=== PATIENT | male | born 1980 ===

== ENCOUNTER 2017-08-05 18:50 | Emergency (ER) | payer OTHER ==
[2017-08-05 18:59] VITALS: BMI 47.0
[2017-08-05 19:03] VITALS: O2SAT 100
[2017-08-05] MEDS ORDERED: Metoprolol 1 mg/ml Inj IVP STA (19:08)
--- NOTE | 2017-08-05 19:11 | C.PDOC ---
History Of Present Illness 36yo male, with past medical history of hypertension, high cholesterol, tachycardia, and has had multiple past admissions for chest pain and palpitations, presents to ED today with complaints of palpitations. He states he felt his heart racing all day and was wore at work so he called 911 when he got home. Patient also reports a non-productive cough but denies any associated fever. He also reports mild chest pain, denies any shortness of breath. He has no other complaints. Time Seen by Provider: 08/05/17 18:56 Chief Complaint (Nursing): Chest Pain History Per: Patient History/Exam Limitations: no limitations Onset/Duration Of Symptoms: Hrs Current Symptoms Are (Timing): Still Present Past Medical History Reviewed: Historical Data, Nursing Documentation, Vital Signs Vital Signs: Last Vital Signs Temp 99.1 F 08/05/17 22:43 Pulse 108 H 08/05/17 22:43 Resp 17 08/05/17 22:43 BP 119/62 08/05/17 22:43 Pulse Ox 100 08/05/17 22:43 - Medical History PMH: Anxiety, Cardia Arrhythmia, HTN, Hypercholesterolemia, Kidney Stones Denies: Chronic Kidney Disease Surgical History: No Surg Hx Family History: States: Unknown Family Hx, Diabetes - Social History Hx Tobacco Use: No Hx Alcohol Use: No Hx Substance Use: No - Immunization History Hx Tetanus Toxoid Vaccination: Yes Hx Influenza Vaccination: No Hx Pneumococcal Vaccination: No Review Of Systems Except As Marked, All Systems Reviewed And Found Negative. Constitutional: Negative for: Fever Cardiovascular: Positive for: Chest Pain, Palpitations Respiratory: Positive for: Cough. Negative for: Shortness of Breath, SOB with Excertion, Wheezing Gastrointestinal: Negative for: Nausea, Vomiting, Abdominal Pain, Diarrhea, Constipation Genitourinary: Negative for: Dysuria Psych: Positive for: Anxiety Physical Exam - Physical Exam Appears: Non-toxic, Other (anxious appearing, patient wont open his eyes and states "I'm trying to calm down") Skin: Normal Color Head: Atraumatic, Normacephalic Neck: Supple Chest: Symmetrical Cardiovascular: Other (tachycardic) Respiratory: Normal Breath Sounds, No Wheezing Gastrointestinal/Abdominal: Soft, No Tenderness Back: Normal Inspection, No CVA Tenderness Extremity: Normal ROM (moves all extremities) Neurological/Psych: Oriented x3, Normal Motor (moves all extremties) Gait: Steady ED Course And Treatment - Laboratory Results Result Diagrams: 08/05/17 19:10 08/05/17 19:10 O2 Sat by Pulse Oximetry: 100 (RA) Pulse Ox Interpretation: Normal Medical Decision Making Medical Decision Making: Patient has had multiple cardiac evaluations. Patient had negative stress test in 2016. He has had negative CTA in past. Heart score of 0. He was discontinued from metoprolol by PMD. Episodes thought secondary to anxiety. Ativan and lopressor ordered (Aspirin given in field) Called patient's PMD for further information with no call back. EKG shows sinus tachycardia at 143bpm with no ST changes. TSH and free t4 WNL. Trop negative. CT chest Pulmonary arteries: No pulmonary embolism. Aorta: No thoracic aortic aneurysm. Lungs: No mass. No consolidation. Trace bibasilar atelectasis. Pleural spaces: No significant effusion. No pneumothorax. Heart: No cardiomegaly. No significant pericardial effusion. Bones: No acute fracture. Lymph nodes: No pathologically enlarged lymph nodes. IMPRESSION: No pulmonary embolism. Trace bibasilar atelectasis. On reevaluation, heart rate is improved and symptoms are resolved. Patient instructed on importance of following up with PMD Disposition - Disposition Disposition: HOME/ ROUTINE Disposition Time: 22:29 Condition: GOOD Additional Instructions: Follow-up with your PMD within 2 days. Return to ED if condition worsens. Forms: [facility] (Nauruan) - Clinical Impression Clinical Impression: Tachycardia, Anxiety - Scribe Statement The provider has reviewed the documentation as recorded by the Mena Rossi Provider Attestation: All medical record entries made by the Mena were at my direction and personally dictated by me. I have reviewed the chart and agree that the record accurately reflects my personal performance of the history, physical exam, medical decision making, and the department course for this patient. I have also personally directed, reviewed, and agree with the discharge instructions and disposition.
[2017-08-05 19:14] LABS: MEAN PLATELET VOLUME 8.1 fL (7.2-11.7)
[2017-08-05 19:18] LABS: BASO % 0.2 % (0.0-2.0); EOS % 0.2 % (0.0-4.0); LYMPH # 0.7 K/uL (1.0-4.3); LYMPH % 5.8 % (20.0-40.0); MEAN CELL VOLUME 90.7 fL (80.0-94.0); MEAN CORPUSCULAR HEMOGLOBIN 31.6 pg (27.0-31.0); MEAN CORPUSCULAR HGB CONC 34.9 g/dL (33.0-37.0); MONO # 0.6 K/uL (0.0-0.8); MONO % 4.7 % (0.0-10.0); NRBC % 0.1 % (0.0-2.0); PLATELET COUNT 271 K/uL (130-400); RED CELL DISTRIBUTION WIDTH 13.7 % (11.5-14.5); WHITE BLOOD COUNT 12.8 K/uL (4.8-10.8)
[2017-08-05 19:26] LABS: ALB/GLOB RATIO 1.4 (1.0-2.1); ALKALINE PHOSPHATASE 60 U/L (38-126); ALT/SGPT 43 U/L (21-72); AST/SGOT 21 U/L (17-59); BLOOD UREA NITROGEN 12 mg/dL (9-20); CALCIUM 8.6 mg/dl (8.6-10.4); CARBON DIOXIDE 24 mmol/L (22-30); CHLORIDE 98 mmol/L (98-107); GFR AFRICAN-AMERICAN > 60; GLUCOSE,RANDOM 111 mg/dL (75-110); MAGNESIUM 1.5 mg/dL (1.6-2.3); PHOSPHOROUS 2.6 mg/dL (2.5-4.5); POTASSIUM 3.8 mmol/L (3.6-5.2); SODIUM 134 mmol/L (132-148); TOTAL PROTEIN 7.5 g/dL (6.3-8.3)
[2017-08-05] MEDS ORDERED: Metoprolol 1 mg/ml Inj IVP ONE (19:33)
[2017-08-05 19:42] VITALS: RESP 17
[2017-08-05 19:56] LABS: THYROID STIMULATING HORMONE 1.66 mIU/L (0.46-4.68)
[2017-08-05 20:01] LABS: EOSINOPHIL 1 % (0-4); NEUTROPHIL 88 % (50-75); TOTAL CELLS COUNTED 100
[2017-08-05] MEDS ORDERED: Iodixanol 320 MG/ML 100 ML BOTTLE IV ONE (20:42)
[2017-08-05 22:45] VITALS: BP 119/62; PULSE 108; TEMP 99.1
--- NOTE | 2017-08-06 07:23 | RAD ---
Chest x-ray single frontal view History: Chest pain. Comparison: 10/02/2016 Findings: Mild venous congestion. Right hilar prominence. Small nodular density at the right lung base may represent confluence of shadows with ribs and vessels. Heart size within normal limits. Impression: Mild venous congestion. Right hilar prominence. Small nodular density at the right lung base may represent confluence of shadows with ribs and vessels.
--- NOTE | 2017-08-06 08:24 | CT ---
CT chest pulmonary angiogram History: Chest wall pain. Tachycardia. Elevated D-dimer. Comparison: CT chest dated 09/23/2016 Technique: Axial computed tomographic angiographic images of the chest were performed with intravenous contrast utilizing pulmonary embolism protocol. Subsequently, sagittal coronal reformatted images as well as sagittal coronal MIPS reformatted images were obtained. This CT exam was performed using one or more of the following dose reduction techniques: Automated exposure control, adjustment of the mA and/or kV according to patient size, and/or use of iterative reconstruction technique. Findings: No evidence of acute pulmonary embolism. Somewhat limited evaluation of the distal segmental and subsegmental branches secondary to motion artifact. No significant aortic aneurysm. Trace bibasilar atelectasis. 2-3 millimeter subpleural nodule and or granuloma at the lateral aspect of the right lung on series 4, image 53. Additional 5 millimeter granuloma/nodule more inferiorly within the right lung on series 4, image 61. No significant pleural effusion. No significant cardiomegaly. Mild degenerative changes in the osseous structures. No significant lymphadenopathy. Heterogeneous attenuation of the spleen, nonspecific. Small hiatal hernia. Impression: No acute pulmonary embolism. Trace bibasilar atelectasis. 2-3 millimeter subpleural nodule and or granuloma at the lateral aspect of the right lung on series 4, image 53. Additional 5 millimeter granuloma/nodule more inferiorly within the right lung on series 4, image 61. These findings were preliminarily reported at 10:28 p.m. on 08/05/[address] Katia Mcclure from [facility].
== END 2017-08-05 22:43 | disposition home or self-care (01) ==
LOC: C.ER 18:50
DX: R00.0 Tachycardia, unspecified (principal); F41.9 Anxiety disorder, unspecified
CPT/HCPCS: 71010; 71275; 80053; 82550; 83735; 84100; 84439; 84443; 84484; 85025; 85378; 87804; 96374; 96375; 99285; J2060; Q9967

== ENCOUNTER 2017-08-17 17:24 | Emergency (ER) | payer OTHER ==
[2017-08-17 17:33] VITALS: BMI 49.9
[2017-08-17 17:37] VITALS: TEMP 98.2; O2SAT 100
--- NOTE | 2017-08-17 18:10 | C.PDOC ---
History Of Present Illness 36 y/o male presents to the ED complaining of abdominal pain x 1 hour. Patient was getting indigestion after eating chicken sandwich. He notes pain in the upper abdomen a little towards the right, has been burping and has gas too. Patient states that his heart is beating fast and he got worried and he took Xanax 0.25mg for anxiety with relief. He saw a pheresis specialist today and his echocardiogram was normal. He is scheduled for a holter monitor tomorrow. He has been on a beta-main and Lexapro in the past but has not been restarted on these meds pending the monitor. He was seen in this ED 2 weeks ago for the same complaiint. Work-up at that time including CTA Chest, labs and EKG were all unremarkable. Patient notes that he has left sided neck pain, SOB during episodes and nausea. Denies Chest pain, vomiting, diarrhea, constipation or any further medical complaints. Time Seen by Provider: 08/17/17 17:28 Chief Complaint (Nursing): Palpitations History Per: Patient History/Exam Limitations: no limitations Onset/Duration Of Symptoms: Hrs (x1 hour) Current Symptoms Are (Timing): Still Present Past Medical History Vital Signs: Last Vital Signs Temp 98.2 F 08/17/17 17:25 Pulse 107 H 08/17/17 17:25 Resp 20 08/17/17 17:25 BP 128/83 08/17/17 17:25 Pulse Ox 100 08/17/17 18:18 - Medical History PMH: Anxiety, Cardia Arrhythmia ( PER PATIENT, INAPPROPRIATE SINUS TACHYCARDIA ), Kidney Stones Denies: HTN (PT DENIES), Hypercholesterolemia (PT DENIES), Chronic Kidney Disease Family History: States: Unknown Family Hx, Diabetes - Social History Hx Tobacco Use: No (Never smoked) Hx Alcohol Use: No Hx Substance Use: No - Immunization History Hx Tetanus Toxoid Vaccination: Yes Hx Influenza Vaccination: No Hx Pneumococcal Vaccination: No Review Of Systems Except As Marked, All Systems Reviewed And Found Negative. (As per HPI, otherwise negative) Cardiovascular: Negative for: Chest Pain Respiratory: Positive for: Shortness of Breath (During episodes) Gastrointestinal: Positive for: Nausea, Abdominal Pain. Negative for: Vomiting , Diarrhea, Constipation Musculoskeletal: Positive for: Neck Pain (Left sided neck pain) Physical Exam - Physical Exam Appears: Well, No Acute Distress, Other (anxious) Skin: Normal Color, Warm, Dry Head: Atraumatic, Normacephalic Nose: Normal Throat: Normal Neck: Normal Cardiovascular: Rhythm Regular, No Murmur, Other (Elevated heart rate) Respiratory: Normal Breath Sounds, No Accessory Muscle Use Gastrointestinal/Abdominal: Normal Exam, Soft, No Tenderness, No Guarding, No Rebound Back: Normal Inspection Extremity: Normal ROM, No Deformity Neurological/Psych: Oriented x3 ED Course And Treatment ECG: Interpreted By Me ECG Rhythm: Sinus Tachycardia ECG Interpretation: No Acute Changes O2 Sat by Pulse Oximetry: 100 (RA) Pulse Ox Interpretation: Normal Medical Decision Making Medical Decision Making: Time: 18:15 patient is medically stable and will be discharged home. Scribe Attestation: Documented by Norma Mckeon acting as a scribe for Karla Wood MD. Scribe Attestation: All medical record entries made by the Scribe were at my direction and personally dictated by me. I have reviewed the chart and agree that the record accurately reflects my personal performance of the history, physical exam, medical decision making, and the department course for this patient. I have also personally directed, reviewed, and agree with the discharge instructions and disposition. Disposition Counseled Patient/Family Regarding: Studies Performed, Diagnosis, Need For Followup - Disposition Referrals: Anamaria Alaniz MD [Staff Provider] - Disposition: HOME/ ROUTINE Disposition Time: 18:20 Condition: STABLE Additional Instructions: Follow up tomorrow for your monitor as scheduled. Instructions: Atrial Tachycardia (ED) Forms: [email or web address] (Sami) - Clinical Impression Clinical Impression: Tachycardia, Anxiety
[2017-08-17 18:52] VITALS: BP 117/78; PULSE 92; RESP 16
--- NOTE | 2017-08-18 15:50 | CARD ---
APPROVED REPORT EKG Measurement Heart [id number] <Conclusion> Sinus tachycardia Otherwise normal ECG
== END 2017-08-17 18:50 | disposition home or self-care (01) ==
LOC: C.ER 17:24
DX: R00.0 Tachycardia, unspecified (principal); F41.9 Anxiety disorder, unspecified

== ENCOUNTER 2017-08-21 18:17 | Emergency (ER) | payer OTHER ==
[2017-08-21 18:17] VITALS: BMI 49.9
[2017-08-21 18:24] VITALS: O2SAT 99
--- NOTE | 2017-08-21 19:32 | C.PDOC ---
History Of Present Illness 36 y/o M c PMHx anxiety, sinus tachycardia p/w episode of palpitations, dyspnea , anxiety. Patient called EMS during this episode but felt better and wished to stay home, but EMS workers told him that they would feel more comfortable if he came to the hospital so he agreed. He currently denies any symptoms whatsoever and states it felt no different than his many anxiety attacks in the past. He also notes that he was in this ED just a few days ago for the same symptoms and had a negative CTA for PE. Time Seen by Provider: 08/21/17 19:22 Chief Complaint (Nursing): Abdominal Pain Past Medical History Vital Signs: Last Vital Signs Temp 97.6 F 08/21/17 18:20 Pulse 95 H 08/21/17 18:20 Resp 18 08/21/17 18:20 BP 151/84 H 08/21/17 18:20 Pulse Ox 99 08/21/17 19:38 - Medical History PMH: Anxiety, Cardia Arrhythmia ( PER PATIENT, INAPPROPRIATE SINUS TACHYCARDIA ), HTN, Kidney Stones Denies: Hypercholesterolemia (PT DENIES), Chronic Kidney Disease Family History: States: Unknown Family Hx, Diabetes - Social History Hx Tobacco Use: No (Never smoked) Hx Alcohol Use: No Hx Substance Use: No - Immunization History Hx Tetanus Toxoid Vaccination: Yes Hx Influenza Vaccination: No Hx Pneumococcal Vaccination: No Review Of Systems Except As Marked, All Systems Reviewed And Found Negative. Constitutional: Negative for: Fever Gastrointestinal: Negative for: Vomiting Physical Exam - Physical Exam Additional Physical Exam Comments: Constitutional: No acute distress. Head: Normocephalic. Atraumatic. Eyes: PERRL. ENT: Moist mucous membranes. Neck: Supple. Cardiovascular: Regular rate. Radial pulse 2+ bilaterally. Chest: No tenderness. Respiratory: Clear to auscultation bilaterally. GI: Soft. Nontender. Nondistended. Back: No CVA tenderness. Musculoskeletal: No tenderness or swelling of extremities. Skin: No rash. Neurologic: Alert, no focal deficit. ED Course And Treatment O2 Sat by Pulse Oximetry: 99 Medical Decision Making Medical Decision Making: EKG Sinus rhythm, 87 bpm, no ST elevations. Patient asymptomatic. Negative CTA 15 days ago and negative troponins x 16 in the past 2 years, no positives. 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 Will discharge, instructed to return to ED for any other concern. Disposition - Disposition Disposition: HOME/ ROUTINE Disposition Time: 19:45 Condition: STABLE Instructions: Anxiety (ED) Forms: [facility] (Portuguese) - Clinical Impression Clinical Impression: Palpitations
[2017-08-21 19:56] VITALS: BP 140/82; PULSE 90; RESP 16; TEMP 98
--- NOTE | 2017-08-23 13:24 | CARD ---
APPROVED REPORT EKG Measurement Heart [id number] MA 160P18 [id number] <Conclusion> Normal sinus rhythm Normal ECG
== END 2017-08-21 19:56 | disposition home or self-care (01) ==
LOC: C.ER 18:17
DX: R00.2 Palpitations (principal)